=== PATIENT | female | born 1930 | race African-American/Black ===

== ENCOUNTER 2018-05-07 06:58 | Inpatient (IN) ==
[2018-05-07] MEDS ORDERED: SODIUM CHLORIDE 0.9% 500 ML IV STA (07:25)
[2018-05-07] MEDS ORDERED: PANTOPRAZOLE 40 MG VIAL IV STA (07:25)
[2018-05-07 07:39] LABS: Basophils % 0.3 % (0.0-0.8); Eosinophils # 0.1 10*3/uL (0.0-0.87); Eosinophils % 0.7 % (0.00-10.9); Hematocrit 37.4 VOL% (35.7-47.0); Hemoglobin 12.2 GM/DL (12.0-16.0); Immature Granulocytes % 0.9 %; Immature Granulocytes Absolute 0.09 #; Lymphocytes # 1.3 10*3/uL (1.4-4.0); Lymphocytes % 13.7 % (21.3-54.2); Mean Corpuscular HGB Conc 32.6 GM/DL (32-36); Mean Corpuscular Hemoglobin 28 PG (27-34); Mean Corpuscular Volume 86.6 FL (87-102); Mean Platelet Volume 9.3 FL (9.6-12.0); Monocytes # 0.6 10*3/uL (0.11-0.8); Neutrophils # 7.6 10*3/uL (1.4-7.4); Neutrophils % 78.4 % (38.7-73.9); Platelet Count 284 T/CUMM (130-400); Red Blood Count 4.32 MC/CUMM (3.8-5.5); White Blood Count 9.7 T/CUMM (4-12)
[2018-05-07 07:46] LABS: INR 0.9; PT Patient Result 10.1 SECS
[2018-05-07] MEDS ORDERED: ONDANSETRON 4 MG/2 ML VIAL IV PRN (07:56)
[2018-05-07] MEDS ORDERED: ACETAMINOPHEN 325 MG TABLET PO PRN (07:56)
[2018-05-07 08:00] LABS: Albumin 3.7 G/DL (3.4-5.0); Bilirubin,Total 0.4 MG/DL (0.2-1.0); Calcium 9.5 MG/DL (8.5-10.1); Osmolality,Calculated 284.3 MOS/KG (273-304); Potassium 3.8 MMOL/L (3.5-5.1); Total Protein 7.2 G/DL (6.4-8.3)
[2018-05-07 13:30] LABS: Hematocrit 35.3 VOL% (35.7-47.0); Hemoglobin 11.2 GM/DL (12.0-16.0)
[2018-05-07] MEDS: SODIUM CHLORIDE 0.9% 1,000 ML IV SCH ×2 (14:02→22:09)
[2018-05-07] MEDS: traMADol 50 MG TABLET PO SCH (14:06)
[2018-05-07] MEDS: OFLOXACIN 0.3% OPH SOLN 10 ML BOTTLE LEFT EYE SCH ×3 (14:07→22:11)
[2018-05-07] MEDS: prednisoLONE ACETATE 1% OPH SUSP 5 ML BOTTLE LEFT EYE SCH ×3 (14:07→22:14)
[2018-05-07] MEDS: DOCUSATE SODIUM 100 MG CAPSULE PO SCH ×2 (14:07→22:10)
[2018-05-07 18:36] LABS: Hematocrit 33.4 VOL% (35.7-47.0); Hemoglobin 10.5 GM/DL (12.0-16.0)
[2018-05-07] MEDS: POTASSIUM CHLORIDE 10 MEQ TABLET PO SCH (22:10)
[2018-05-07] MEDS: SIMVASTATIN 20 MG TABLET PO SCH (22:10)
[2018-05-07] MEDS: LATANOPROST 0.005% OPH SOLN 2.5 ML BOTTLE BOTH EYES SCH (22:13)
[2018-05-08 02:30] LABS: Basophils % 0.3 % (0.0-0.8); Eosinophils # 0.3 10*3/uL (0.0-0.87); Eosinophils % 3.2 % (0.00-10.9); Hematocrit 28.9 VOL% (35.7-47.0); Hemoglobin 9.2 GM/DL (12.0-16.0); Immature Granulocytes % 0.7 %; Immature Granulocytes Absolute 0.07 #; Lymphocytes # 2.5 10*3/uL (1.4-4.0); Lymphocytes % 26.5 % (21.3-54.2); Mean Corpuscular HGB Conc 31.8 GM/DL (32-36); Mean Corpuscular Hemoglobin 28 PG (27-34); Mean Corpuscular Volume 88.7 FL (87-102); Mean Platelet Volume 9.3 FL (9.6-12.0); Monocytes # 0.9 10*3/uL (0.11-0.8); Monocytes % 9.4 % (1.7-12.7); Neutrophils # 5.7 10*3/uL (1.4-7.4); Neutrophils % 59.9 % (38.7-73.9); Platelet Count 225 T/CUMM (130-400); Red Blood Count 3.26 MC/CUMM (3.8-5.5); Red Cell Distribution Width 14.3 % (9.3-17.3); White Blood Count 9.5 T/CUMM (4-12)
[2018-05-08 03:03] LABS: Calcium 8.5 MG/DL (8.5-10.1); Osmolality,Calculated 281.3 MOS/KG (273-304); Potassium 3.4 MMOL/L (3.5-5.1)
[2018-05-08] MEDS: SODIUM CHLORIDE 0.9% 1,000 ML IV SCH ×2 (06:06→17:15)
[2018-05-08] MEDS ORDERED: LORATADINE 10 MG TABLET PO PRN (08:20)
[2018-05-08] MEDS: POTASSIUM CHLORIDE 20 MEQ TABLET PO PRN ×3 (09:28→17:16)
[2018-05-08] MEDS: PANTOPRAZOLE 40 MG TABLET PO SCH (09:28)
[2018-05-08] MEDS: traMADol 50 MG TABLET PO SCH (09:29)
[2018-05-08] MEDS: prednisoLONE ACETATE 1% OPH SUSP 5 ML BOTTLE LEFT EYE SCH ×4 (09:29→21:35)
[2018-05-08] MEDS: LORATADINE 10 MG TABLET PO SCH (09:29)
[2018-05-08] MEDS: FLUTICASONE 50 MCG NASAL SPRAY 16 GM BOTTLE BOTH NARES SCH (09:29)
[2018-05-08] MEDS: CYANOCOBALAMIN 500 MCG TABLET PO SCH (09:29)
[2018-05-08] MEDS: POTASSIUM CHLORIDE 10 MEQ TABLET PO SCH ×2 (09:29→21:34)
[2018-05-08] MEDS: DOCUSATE SODIUM 100 MG CAPSULE PO SCH ×2 (09:29→21:40)
[2018-05-08] MEDS: OFLOXACIN 0.3% OPH SOLN 10 ML BOTTLE LEFT EYE SCH ×4 (09:30→21:36)
[2018-05-08 12:01] LABS: Hematocrit 30.9 VOL% (35.7-47.0); Hemoglobin 9.7 GM/DL (12.0-16.0)
[2018-05-08 15:22] LABS: Hematocrit 29.6 VOL% (35.7-47.0); Hemoglobin 9.3 GM/DL (12.0-16.0)
[2018-05-08] MEDS: SIMVASTATIN 20 MG TABLET PO SCH (21:34)
[2018-05-08] MEDS: LATANOPROST 0.005% OPH SOLN 2.5 ML BOTTLE BOTH EYES SCH (21:35)
[2018-05-09 02:21] LABS: Calcium 8.4 MG/DL (8.5-10.1); Osmolality,Calculated 285.7 MOS/KG (273-304); Potassium 3.9 MMOL/L (3.5-5.1)
[2018-05-09 02:33] LABS: Basophils % 0.3 % (0.0-0.8); Eosinophils # 0.2 10*3/uL (0.0-0.87); Eosinophils % 3.7 % (0.00-10.9); Hematocrit 26.2 VOL% (35.7-47.0); Hemoglobin 8.3 GM/DL (12.0-16.0); Immature Granulocytes Absolute 0.06 #; Lymphocytes # 1.6 10*3/uL (1.4-4.0); Lymphocytes % 24.6 % (21.3-54.2); Mean Corpuscular HGB Conc 31.7 GM/DL (32-36); Mean Corpuscular Hemoglobin 28 PG (27-34); Mean Corpuscular Volume 88.8 FL (87-102); Mean Platelet Volume 9.7 FL (9.6-12.0); Monocytes # 0.7 10*3/uL (0.11-0.8); Monocytes % 10.5 % (1.7-12.7); Neutrophils # 3.8 10*3/uL (1.4-7.4); Neutrophils % 59.9 % (38.7-73.9); Platelet Count 211 T/CUMM (130-400); Red Blood Count 2.95 MC/CUMM (3.8-5.5); Red Cell Distribution Width 14.3 % (9.3-17.3); White Blood Count 6.3 T/CUMM (4-12)
[2018-05-09] MEDS: SODIUM CHLORIDE 0.9% 1,000 ML IV SCH (06:01)
[2018-05-09] MEDS: prednisoLONE ACETATE 1% OPH SUSP 5 ML BOTTLE LEFT EYE SCH ×4 (08:42→21:36)
[2018-05-09] MEDS: POTASSIUM CHLORIDE 10 MEQ TABLET PO SCH ×2 (08:42→21:36)
[2018-05-09] MEDS: CYANOCOBALAMIN 500 MCG TABLET PO SCH (08:42)
[2018-05-09] MEDS: FLUTICASONE 50 MCG NASAL SPRAY 16 GM BOTTLE BOTH NARES SCH (08:42)
[2018-05-09] MEDS: OFLOXACIN 0.3% OPH SOLN 10 ML BOTTLE LEFT EYE SCH ×4 (08:42→21:36)
[2018-05-09] MEDS: DOCUSATE SODIUM 100 MG CAPSULE PO SCH ×2 (08:43→21:36)
[2018-05-09] MEDS: PANTOPRAZOLE 40 MG TABLET PO SCH (08:43)
[2018-05-09] MEDS: LORATADINE 10 MG TABLET PO SCH (08:43)
[2018-05-09] MEDS: traMADol 50 MG TABLET PO SCH (08:43)
[2018-05-09 13:56] LABS: Hemoglobin 8.3 GM/DL (12.0-16.0)
[2018-05-09] MEDS: SIMVASTATIN 20 MG TABLET PO SCH (21:36)
[2018-05-09] MEDS: LATANOPROST 0.005% OPH SOLN 2.5 ML BOTTLE BOTH EYES SCH (21:38)
[2018-05-09] MEDS: TEMAZEPAM 15 MG CAPSULE PO PRN (23:44)
[2018-05-10] MEDS: POTASSIUM CHLORIDE 10 MEQ TABLET PO SCH ×2 (09:12→20:58)
[2018-05-10] MEDS: traMADol 50 MG TABLET PO SCH (09:12)
[2018-05-10] MEDS: LORATADINE 10 MG TABLET PO SCH (09:13)
[2018-05-10] MEDS: FLUTICASONE 50 MCG NASAL SPRAY 16 GM BOTTLE BOTH NARES SCH (09:13)
[2018-05-10] MEDS: PANTOPRAZOLE 40 MG TABLET PO SCH (09:13)
[2018-05-10] MEDS: OFLOXACIN 0.3% OPH SOLN 10 ML BOTTLE LEFT EYE SCH ×4 (09:13→20:58)
[2018-05-10] MEDS: CYANOCOBALAMIN 500 MCG TABLET PO SCH (09:13)
[2018-05-10] MEDS: DOCUSATE SODIUM 100 MG CAPSULE PO SCH ×2 (09:13→20:58)
[2018-05-10] MEDS: prednisoLONE ACETATE 1% OPH SUSP 5 ML BOTTLE LEFT EYE SCH ×4 (09:14→20:58)
[2018-05-10 09:24] LABS: Hematocrit 29.8 VOL% (35.7-47.0); Hemoglobin 9.3 GM/DL (12.0-16.0)
[2018-05-10] MEDS: SODIUM CHLORIDE 0.9% 1,000 ML IV SCH ×2 (10:31→21:03)
[2018-05-10 18:43] LABS: Hematocrit 26.5 VOL% (35.7-47.0); Hemoglobin 8.1 GM/DL (12.0-16.0)
[2018-05-10] MEDS: SIMVASTATIN 20 MG TABLET PO SCH (20:58)
[2018-05-10] MEDS: TEMAZEPAM 15 MG CAPSULE PO PRN (20:58)
[2018-05-10] MEDS: LATANOPROST 0.005% OPH SOLN 2.5 ML BOTTLE BOTH EYES SCH (20:59)
[2018-05-10] MEDS ORDERED: SODIUM CHLORIDE 0.9% 1,000 ML IV PRN (22:05)
[2018-05-11] MEDS ORDERED: FUROSEMIDE 20 MG/2 ML VIAL IV ONE (00:38)
[2018-05-11] MEDS: FLUTICASONE 50 MCG NASAL SPRAY 16 GM BOTTLE BOTH NARES SCH (09:24)
[2018-05-11] MEDS: OFLOXACIN 0.3% OPH SOLN 10 ML BOTTLE LEFT EYE SCH ×4 (09:24→20:42)
[2018-05-11] MEDS: prednisoLONE ACETATE 1% OPH SUSP 5 ML BOTTLE LEFT EYE SCH ×4 (09:25→20:42)
[2018-05-11] MEDS: POTASSIUM CHLORIDE 10 MEQ TABLET PO SCH ×2 (09:25→20:42)
[2018-05-11] MEDS: LORATADINE 10 MG TABLET PO SCH (09:25)
[2018-05-11] MEDS: traMADol 50 MG TABLET PO SCH (09:25)
[2018-05-11] MEDS: CYANOCOBALAMIN 500 MCG TABLET PO SCH (09:25)
[2018-05-11] MEDS: PANTOPRAZOLE 40 MG TABLET PO SCH (09:26)
[2018-05-11] MEDS: DOCUSATE SODIUM 100 MG CAPSULE PO SCH ×2 (09:26→20:42)
[2018-05-11 10:21] LABS: Calcium 9.6 MG/DL (8.5-10.1); Potassium 3.1 MMOL/L (3.5-5.1)
[2018-05-11 11:23] LABS: Basophils % 0.3 % (0.0-0.8); Eosinophils # 0.2 10*3/uL (0.0-0.87); Eosinophils % 2.1 % (0.00-10.9); Hematocrit 38.3 VOL% (35.7-47.0); Hemoglobin 12.2 GM/DL (12.0-16.0); Immature Granulocytes % 0.7 %; Immature Granulocytes Absolute 0.06 #; Lymphocytes # 1.5 10*3/uL (1.4-4.0); Mean Corpuscular HGB Conc 31.9 GM/DL (32-36); Mean Corpuscular Hemoglobin 28 PG (27-34); Mean Corpuscular Volume 87.6 FL (87-102); Mean Platelet Volume 9.6 FL (9.6-12.0); Monocytes # 0.7 10*3/uL (0.11-0.8); Monocytes % 7.5 % (1.7-12.7); NRBC # 0.02 10*3/uL; Neutrophils # 6.3 10*3/uL (1.4-7.4); Neutrophils % 72.4 % (38.7-73.9); Platelet Count 293 T/CUMM (130-400); Red Blood Count 4.37 MC/CUMM (3.8-5.5); Red Cell Distribution Width 14.9 % (9.3-17.3); White Blood Count 8.8 T/CUMM (4-12)
[2018-05-11] MEDS: SODIUM CHLORIDE 0.9% 1,000 ML IV SCH (11:29)
[2018-05-11] MEDS: POTASSIUM CHLORIDE 20 MEQ TABLET PO PRN ×3 (12:41→20:43)
[2018-05-11 20:03] LABS: Hematocrit 33.5 VOL% (35.7-47.0); Hemoglobin 10.7 GM/DL (12.0-16.0)
[2018-05-11] MEDS: LATANOPROST 0.005% OPH SOLN 2.5 ML BOTTLE BOTH EYES SCH (20:42)
[2018-05-11] MEDS: TEMAZEPAM 15 MG CAPSULE PO PRN (20:42)
[2018-05-11] MEDS: SIMVASTATIN 20 MG TABLET PO SCH (20:43)
[2018-05-12 06:00] LABS: Basophils % 0.3 % (0.0-0.8); Eosinophils # 0.3 10*3/uL (0.0-0.87); Eosinophils % 3.2 % (0.00-10.9); Hematocrit 34.6 VOL% (35.7-47.0); Hemoglobin 11.1 GM/DL (12.0-16.0); Immature Granulocytes % 1.4 %; Immature Granulocytes Absolute 0.12 #; Lymphocytes # 1.7 10*3/uL (1.4-4.0); Lymphocytes % 19.2 % (21.3-54.2); Mean Corpuscular HGB Conc 32.1 GM/DL (32-36); Mean Corpuscular Hemoglobin 28 PG (27-34); Mean Corpuscular Volume 87.8 FL (87-102); Mean Platelet Volume 9.4 FL (9.6-12.0); Monocytes # 0.8 10*3/uL (0.11-0.8); Neutrophils # 5.9 10*3/uL (1.4-7.4); Neutrophils % 66.9 % (38.7-73.9); Platelet Count 280 T/CUMM (130-400); Red Blood Count 3.94 MC/CUMM (3.8-5.5); Red Cell Distribution Width 15.1 % (9.3-17.3); White Blood Count 8.8 T/CUMM (4-12)
[2018-05-12 06:16] LABS: Albumin 3.2 G/DL (3.4-5.0); Bilirubin,Total 0.6 MG/DL (0.2-1.0); Calcium 9.4 MG/DL (8.5-10.1); Total Protein 6.5 G/DL (6.4-8.3)
[2018-05-12 08:07] VITALS: BP 139/85
== END 2018-05-12 09:43 | disposition home or self-care (01) | DRG 378 ==
LOC: N.ED 06:58 → N.EDINP 06:58 → N.2E 12:12
PROVIDERS: ADMIT Internal Medicine; ATTEND Internal Medicine

== ENCOUNTER 2018-08-05 07:07 | Inpatient (IN) ==
[2018-08-05] MEDS ORDERED: SODIUM CHLORIDE 0.9% 1,000 ML IV STA (07:47)
[2018-08-05] MEDS ORDERED: PANTOPRAZOLE 40 MG VIAL IV STA (07:47)
[2018-08-05] MEDS ORDERED: ONDANSETRON 4 MG/2 ML VIAL IV STA (07:47)
[2018-08-05 08:55] LABS: Basophils % 0.4 % (0.0-0.8); Eosinophils # 0.1 10*3/uL (0.0-0.87); Eosinophils % 1.4 % (0.00-10.9); Hematocrit 38.4 VOL% (35.7-47.0); Immature Granulocytes % 0.6 %; Immature Granulocytes Absolute 0.03 #; Lymphocytes # 0.9 10*3/uL (1.4-4.0); Lymphocytes % 18.6 % (21.3-54.2); Mean Corpuscular HGB Conc 31.3 GM/DL (32-36); Mean Corpuscular Volume 89.3 FL (87-102); Mean Platelet Volume 9.4 FL (9.6-12.0); Monocytes % 10.4 % (1.7-12.7); Neutrophils % 68.6 % (38.7-73.9); Platelet Count 250 T/CUMM (130-400); Red Cell Distribution Width 13.8 % (9.3-17.3)
[2018-08-05 09:02] LABS: PT Patient Result 10.4 SECS; Partial Thromboplastin Time 27.5 SECS (0-40)
[2018-08-05 09:13] LABS: Albumin 3.4 G/DL (3.4-5.0); Bilirubin,Total 0.5 MG/DL (0.2-1.0); Calcium 8.6 MG/DL (8.5-10.1); Osmolality,Calculated 284.1 MOS/KG (273-304); Total Protein 6.2 G/DL (6.4-8.3)
[2018-08-05] MEDS ORDERED: ONDANSETRON 4 MG/2 ML VIAL IV PRN (09:24)
[2018-08-05] MEDS: SODIUM CHLORIDE 0.9% 1,000 ML IV SCH ×2 (12:03→23:20)
[2018-08-05] MEDS ORDERED: FUROSEMIDE 40 MG/4 ML VIAL IV PRN (12:52)
[2018-08-05] MEDS ORDERED: traMADol 50 MG TABLET PO PRN (13:16)
[2018-08-05 14:10] LABS: Hematocrit 32.7 VOL% (35.7-47.0); Hemoglobin 10.2 GM/DL (12.0-16.0)
[2018-08-05] MEDS: SIMVASTATIN 20 MG TABLET PO SCH (18:02)
[2018-08-05] MEDS: FERROUS SULFATE 325 MG TABLET PO SCH (18:02)
[2018-08-05 21:03] LABS: Hematocrit 29.6 VOL% (35.7-47.0); Hemoglobin 9.3 GM/DL (12.0-16.0)
[2018-08-05] MEDS: POTASSIUM GLUCONATE 500 MG TABLET PO SCH (21:06)
[2018-08-05] MEDS: DOCUSATE SODIUM 100 MG CAPSULE PO SCH (21:06)
[2018-08-05] MEDS: LATANOPROST 0.005% OPH SOLN 2.5 ML BOTTLE BOTH EYES SCH (21:07)
[2018-08-06 02:35] LABS: Hematocrit 25.6 VOL% (35.7-47.0); Hemoglobin 7.9 GM/DL (12.0-16.0)
[2018-08-06] MEDS ORDERED: SODIUM CHLORIDE 0.9% 1,000 ML IV PRN (02:47)
[2018-08-06 05:31] LABS: Calcium 8.2 MG/DL (8.5-10.1); Osmolality,Calculated 286.8 MOS/KG (273-304)
[2018-08-06 05:32] LABS: Basophils % 0.3 % (0.0-0.8); Eosinophils # 0.2 10*3/uL (0.0-0.87); Eosinophils % 2.8 % (0.00-10.9); Hematocrit 27.1 VOL% (35.7-47.0); Hemoglobin 8.4 GM/DL (12.0-16.0); Immature Granulocytes % 0.7 %; Immature Granulocytes Absolute 0.05 #; Lymphocytes # 1.9 10*3/uL (1.4-4.0); Lymphocytes % 27.1 % (21.3-54.2); Mean Corpuscular Volume 90.9 FL (87-102); Monocytes % 11.6 % (1.7-12.7); Neutrophils % 57.5 % (38.7-73.9); Platelet Count 216 T/CUMM (130-400); Red Blood Count 2.98 MC/CUMM (3.8-5.5); Red Cell Distribution Width 14.1 % (9.3-17.3); White Blood Count 7.2 T/CUMM (4-12)
[2018-08-06] MEDS: DOCUSATE SODIUM 100 MG CAPSULE PO SCH ×2 (08:48→20:57)
[2018-08-06] MEDS: PANTOPRAZOLE 40 MG TABLET PO SCH (08:48)
[2018-08-06] MEDS: FERROUS SULFATE 325 MG TABLET PO SCH ×2 (08:48→16:55)
[2018-08-06] MEDS: hydroCHLOROthiazide 12.5 MG CAPSULE PO SCH (08:48)
[2018-08-06] MEDS: POTASSIUM GLUCONATE 500 MG TABLET PO SCH ×2 (08:48→20:57)
[2018-08-06] MEDS: SODIUM CHLORIDE 0.9% 1,000 ML IV SCH ×2 (08:54→21:01)
[2018-08-06] MEDS ORDERED: PANTOPRAZOLE 40 MG TABLET PO SCH (09:00)
[2018-08-06 09:31] LABS: Folate > 24.0 NG/ML (5.4-24.0); Vitamin B12 1193 PG/ML (211-911)
[2018-08-06] MEDS: amLODIPine 10 MG TABLET PO SCH (10:16)
[2018-08-06 10:38] LABS: Hematocrit 32.1 VOL% (35.7-47.0)
[2018-08-06 10:42] LABS: Hemoglobin 10.3 GM/DL (12.0-16.0)
[2018-08-06 19:32] LABS: Hematocrit 30.3 VOL% (35.7-47.0); Hemoglobin 9.7 GM/DL (12.0-16.0)
[2018-08-06] MEDS: SIMVASTATIN 20 MG TABLET PO SCH (20:57)
[2018-08-06] MEDS: LATANOPROST 0.005% OPH SOLN 2.5 ML BOTTLE BOTH EYES SCH (20:58)
[2018-08-06] MEDS: ACETAMINOPHEN 325 MG TABLET PO PRN (21:10)
[2018-08-07 06:16] LABS: Hematocrit 30.1 VOL% (35.7-47.0); Hemoglobin 9.8 GM/DL (12.0-16.0)
[2018-08-07] MEDS: FERROUS SULFATE 325 MG TABLET PO SCH ×2 (08:48→16:27)
[2018-08-07] MEDS: PANTOPRAZOLE 40 MG TABLET PO SCH (08:48)
[2018-08-07] MEDS: POTASSIUM GLUCONATE 500 MG TABLET PO SCH ×2 (08:48→22:46)
[2018-08-07] MEDS: DOCUSATE SODIUM 100 MG CAPSULE PO SCH ×2 (08:48→22:46)
[2018-08-07] MEDS: hydroCHLOROthiazide 12.5 MG CAPSULE PO SCH (08:48)
[2018-08-07] MEDS: amLODIPine 10 MG TABLET PO SCH (08:48)
[2018-08-07] MEDS: SODIUM CHLORIDE 0.9% 1,000 ML IV SCH ×2 (10:42→22:51)
[2018-08-07 16:59] LABS: Hemoglobin 9.9 GM/DL (12.0-16.0)
[2018-08-07] MEDS: LATANOPROST 0.005% OPH SOLN 2.5 ML BOTTLE BOTH EYES SCH (22:46)
[2018-08-07] MEDS: SIMVASTATIN 20 MG TABLET PO SCH (22:46)
[2018-08-07] MEDS: ACETAMINOPHEN 325 MG TABLET PO PRN (22:48)
[2018-08-08 05:47] LABS: Basophils % 0.3 % (0.0-0.8); Eosinophils # 0.2 10*3/uL (0.0-0.87); Eosinophils % 3.1 % (0.00-10.9); Hematocrit 29.1 VOL% (35.7-47.0); Hemoglobin 9.5 GM/DL (12.0-16.0); Immature Granulocytes % 0.7 %; Immature Granulocytes Absolute 0.05 #; Lymphocytes # 1.4 10*3/uL (1.4-4.0); Lymphocytes % 18.2 % (21.3-54.2); Mean Corpuscular HGB Conc 32.6 GM/DL (32-36); Mean Corpuscular Volume 88.4 FL (87-102); Mean Platelet Volume 9.6 FL (9.6-12.0); Monocytes % 10.1 % (1.7-12.7); Neutrophils % 67.6 % (38.7-73.9); Platelet Count 200 T/CUMM (130-400); Red Blood Count 3.29 MC/CUMM (3.8-5.5); Red Cell Distribution Width 14.4 % (9.3-17.3); White Blood Count 7.4 T/CUMM (4-12)
[2018-08-08 05:59] LABS: Hematocrit 29.3 VOL% (35.7-47.0); Hemoglobin 9.5 GM/DL (12.0-16.0)
[2018-08-08 06:20] LABS: Calcium 8.4 MG/DL (8.5-10.1); Osmolality,Calculated 285.7 MOS/KG (273-304)
[2018-08-08] MEDS ORDERED: ALUMINUM/MAGNES/SIMETH MAX STR 30 ML UDCUP PO PRN (08:18)
[2018-08-08] MEDS: POTASSIUM GLUCONATE 500 MG TABLET PO SCH ×2 (08:25→21:15)
[2018-08-08] MEDS: DOCUSATE SODIUM 100 MG CAPSULE PO SCH ×2 (08:25→21:15)
[2018-08-08] MEDS: hydroCHLOROthiazide 12.5 MG CAPSULE PO SCH (08:25)
[2018-08-08] MEDS: PANTOPRAZOLE 40 MG TABLET PO SCH (08:26)
[2018-08-08] MEDS: FERROUS SULFATE 325 MG TABLET PO SCH ×2 (08:26→16:47)
[2018-08-08] MEDS: amLODIPine 10 MG TABLET PO SCH (08:26)
[2018-08-08] MEDS: POTASSIUM CHLORIDE 20 MEQ TABLET PO PRN ×5 (10:37→23:12)
[2018-08-08 16:32] LABS: Hematocrit 30.6 VOL% (35.7-47.0); Hemoglobin 9.6 GM/DL (12.0-16.0)
[2018-08-08] MEDS: SIMVASTATIN 20 MG TABLET PO SCH (18:00)
[2018-08-08] MEDS: LATANOPROST 0.005% OPH SOLN 2.5 ML BOTTLE BOTH EYES SCH (21:15)
[2018-08-08] MEDS: ACETAMINOPHEN 325 MG TABLET PO PRN (23:14)
[2018-08-09 05:58] LABS: Basophils % 0.3 % (0.0-0.8); Eosinophils # 0.1 10*3/uL (0.0-0.87); Eosinophils % 2.4 % (0.00-10.9); Hematocrit 30.5 VOL% (35.7-47.0); Hemoglobin 9.6 GM/DL (12.0-16.0); Immature Granulocytes % 0.8 %; Immature Granulocytes Absolute 0.05 #; Lymphocytes # 0.8 10*3/uL (1.4-4.0); Mean Corpuscular HGB Conc 31.5 GM/DL (32-36); Mean Platelet Volume 9.3 FL (9.6-12.0); Monocytes % 11.3 % (1.7-12.7); Neutrophils % 72.2 % (38.7-73.9); Platelet Count 205 T/CUMM (130-400); Red Blood Count 3.35 MC/CUMM (3.8-5.5); Red Cell Distribution Width 14.6 % (9.3-17.3); White Blood Count 5.9 T/CUMM (4-12)
[2018-08-09 06:36] LABS: Calcium 8.9 MG/DL (8.5-10.1); Osmolality,Calculated 280.1 MOS/KG (273-304)
[2018-08-09 08:34] VITALS: BP 122/77
[2018-08-09] MEDS: DOCUSATE SODIUM 100 MG CAPSULE PO SCH (09:23)
[2018-08-09] MEDS: POTASSIUM GLUCONATE 500 MG TABLET PO SCH (09:23)
[2018-08-09] MEDS: hydroCHLOROthiazide 12.5 MG CAPSULE PO SCH (09:23)
[2018-08-09] MEDS: FERROUS SULFATE 325 MG TABLET PO SCH (09:24)
[2018-08-09] MEDS: amLODIPine 10 MG TABLET PO SCH (09:24)
[2018-08-09] MEDS: PANTOPRAZOLE 40 MG TABLET PO SCH (09:24)
[2018-08-09] MEDS: POTASSIUM CHLORIDE 20 MEQ TABLET PO PRN (09:24)
== END 2018-08-09 11:10 | disposition home or self-care (01) | DRG 378 ==
LOC: N.ED 07:07 → N.EDINP 09:23 → N.2E 12:11
PROVIDERS: ADMIT Internal Medicine; ATTEND Internal Medicine

== ENCOUNTER 2018-08-15 09:20 | Inpatient (IN) ==
[2018-08-15 11:02] LABS: Basophils % 0.2 % (0.0-0.8); Eosinophils # 0.1 10*3/uL (0.0-0.87); Eosinophils % 0.7 % (0.00-10.9); Hematocrit 28.5 VOL% (35.7-47.0); Hemoglobin 8.7 GM/DL (12.0-16.0); Immature Granulocytes % 0.7 %; Immature Granulocytes Absolute 0.06 #; Lymphocytes # 1.5 10*3/uL (1.4-4.0); Lymphocytes % 17.3 % (21.3-54.2); Mean Corpuscular HGB Conc 30.5 GM/DL (32-36); Mean Corpuscular Volume 93.1 FL (87-102); Mean Platelet Volume 9.2 FL (9.6-12.0); Neutrophils % 74.1 % (38.7-73.9); Platelet Count 360 T/CUMM (130-400); Red Blood Count 3.06 MC/CUMM (3.8-5.5); Red Cell Distribution Width 15.4 % (9.3-17.3); White Blood Count 8.4 T/CUMM (4-12)
[2018-08-15 11:07] LABS: INR 0.9; Partial Thromboplastin Time 26.1 SECS (0-40)
[2018-08-15 11:17] LABS: Calcium 9.6 MG/DL (8.5-10.1); Osmolality,Calculated 287.1 MOS/KG (273-304)
[2018-08-15] MEDS ORDERED: SODIUM CHLORIDE 0.9% 500 ML IV STA (12:00)
[2018-08-15] MEDS ORDERED: ONDANSETRON 4 MG/2 ML VIAL IV PRN (12:01)
[2018-08-15 13:31] LABS: Hematocrit 25.6 VOL% (35.7-47.0); Hemoglobin 8.1 GM/DL (12.0-16.0)
[2018-08-15] MEDS: SODIUM CHLORIDE 0.9% 1,000 ML IV SCH (14:47)
[2018-08-15] MEDS: FERROUS SULFATE 325 MG TABLET PO SCH (18:08)
[2018-08-15] MEDS ORDERED: SODIUM CHLORIDE 0.9% 1,000 ML IV PRN (19:11)
[2018-08-15] MEDS: LATANOPROST 0.005% OPH SOLN 2.5 ML BOTTLE BOTH EYES SCH (21:12)
[2018-08-15] MEDS: SIMVASTATIN 20 MG TABLET PO SCH (21:12)
[2018-08-15] MEDS: DOCUSATE SODIUM 100 MG CAPSULE PO SCH (21:12)
[2018-08-15] MEDS: POTASSIUM CHLORIDE 10 MEQ TABLET PO SCH (21:12)
[2018-08-15] MEDS: cefTRIAXone 1,000 MG in SYRINGE 1 EACH IV SCH (21:13)
[2018-08-15] MEDS: ACETAMINOPHEN 325 MG TABLET PO PRN (23:06)
[2018-08-16] MEDS ORDERED: SODIUM CHLORIDE 0.9% 1,000 ML IV PRN (01:37)
[2018-08-16 05:53] LABS: Albumin 2.8 G/DL (3.4-5.0); Bilirubin,Total 0.7 MG/DL (0.2-1.0); Calcium 8.5 MG/DL (8.5-10.1); Osmolality,Calculated 285.8 MOS/KG (273-304); Total Protein 5.1 G/DL (6.4-8.3)
[2018-08-16] MEDS ORDERED: hydroCHLOROthiazide 12.5 MG CAPSULE PO SCH (09:00)
[2018-08-16] MEDS ORDERED: amLODIPine 10 MG TABLET PO SCH (09:00)
[2018-08-16] MEDS: SODIUM CHLORIDE 0.9% 1,000 ML IV SCH ×4 (09:35→21:13)
[2018-08-16] MEDS: POTASSIUM CHLORIDE 10 MEQ TABLET PO SCH ×2 (09:37→21:18)
[2018-08-16] MEDS: FERROUS SULFATE 325 MG TABLET PO SCH ×2 (09:37→16:56)
[2018-08-16] MEDS: DOCUSATE SODIUM 100 MG CAPSULE PO SCH ×2 (09:38→21:21)
[2018-08-16] MEDS: PANTOPRAZOLE 40 MG VIAL IV SCH (09:38)
[2018-08-16 11:07] LABS: Basophils % 0.3 % (0.0-0.8); Eosinophils # 0.2 10*3/uL (0.0-0.87); Hematocrit 32.2 VOL% (35.7-47.0); Hemoglobin 10.2 GM/DL (12.0-16.0); Immature Granulocytes % 0.9 %; Immature Granulocytes Absolute 0.08 #; Lymphocytes # 1.8 10*3/uL (1.4-4.0); Mean Corpuscular HGB Conc 31.7 GM/DL (32-36); Mean Platelet Volume 8.9 FL (9.6-12.0); Monocytes % 10.2 % (1.7-12.7); NRBC # 0.02 10*3/uL; Neutrophils % 67.6 % (38.7-73.9); Platelet Count 295 T/CUMM (130-400); Red Blood Count 3.79 MC/CUMM (3.8-5.5); Red Cell Distribution Width 21.2 % (9.3-17.3); White Blood Count 9.2 T/CUMM (4-12)
[2018-08-16] MEDS: cefTRIAXone 1,000 MG in SYRINGE 1 EACH IV SCH (21:14)
[2018-08-16] MEDS: traMADol 50 MG TABLET PO PRN (21:18)
[2018-08-16] MEDS: SIMVASTATIN 20 MG TABLET PO SCH (21:18)
[2018-08-16] MEDS: LATANOPROST 0.005% OPH SOLN 2.5 ML BOTTLE BOTH EYES SCH (21:20)
[2018-08-17] MEDS: SODIUM CHLORIDE 0.9% 1,000 ML IV SCH ×2 (03:12→13:39)
[2018-08-17 07:59] LABS: Basophils % 0.4 % (0.0-0.8); Eosinophils # 0.3 10*3/uL (0.0-0.87); Eosinophils % 3.2 % (0.00-10.9); Hematocrit 33.5 VOL% (35.7-47.0); Hemoglobin 10.6 GM/DL (12.0-16.0); Immature Granulocytes % 0.7 %; Immature Granulocytes Absolute 0.06 #; Lymphocytes # 1.9 10*3/uL (1.4-4.0); Lymphocytes % 22.8 % (21.3-54.2); Mean Corpuscular HGB Conc 31.6 GM/DL (32-36); Mean Corpuscular Volume 85.5 FL (87-102); Mean Platelet Volume 9.1 FL (9.6-12.0); NRBC # 0.05 10*3/uL; Neutrophils % 63.9 % (38.7-73.9); Platelet Count 327 T/CUMM (130-400); Red Blood Count 3.92 MC/CUMM (3.8-5.5); Red Cell Distribution Width 21.6 % (9.3-17.3); White Blood Count 8.5 T/CUMM (4-12)
[2018-08-17] MEDS: POTASSIUM CHLORIDE 10 MEQ TABLET PO SCH ×2 (09:40→21:20)
[2018-08-17] MEDS: DOCUSATE SODIUM 100 MG CAPSULE PO SCH ×2 (09:40→21:20)
[2018-08-17] MEDS: PANTOPRAZOLE 40 MG VIAL IV SCH (09:40)
[2018-08-17] MEDS: FERROUS SULFATE 325 MG TABLET PO SCH ×2 (09:40→17:46)
[2018-08-17] MEDS: LATANOPROST 0.005% OPH SOLN 2.5 ML BOTTLE BOTH EYES SCH (21:19)
[2018-08-17] MEDS: traMADol 50 MG TABLET PO PRN (21:19)
[2018-08-17] MEDS: SIMVASTATIN 20 MG TABLET PO SCH (21:20)
[2018-08-17] MEDS: cefTRIAXone 1,000 MG in SYRINGE 1 EACH IV SCH (21:25)
[2018-08-18] MEDS: ACETAMINOPHEN 325 MG TABLET PO PRN (00:23)
[2018-08-18] MEDS: SODIUM CHLORIDE 0.9% 1,000 ML IV SCH ×2 (02:12→08:47)
[2018-08-18 05:31] LABS: Basophils % 0.3 % (0.0-0.8); Eosinophils # 0.3 10*3/uL (0.0-0.87); Eosinophils % 3.9 % (0.00-10.9); Hematocrit 28.2 VOL% (35.7-47.0); Immature Granulocytes % 0.5 %; Immature Granulocytes Absolute 0.03 #; Lymphocytes # 1.5 10*3/uL (1.4-4.0); Lymphocytes % 23.6 % (21.3-54.2); Mean Corpuscular HGB Conc 31.9 GM/DL (32-36); Monocytes % 9.6 % (1.7-12.7); NRBC # 0.03 10*3/uL; Neutrophils % 62.1 % (38.7-73.9); Platelet Count 284 T/CUMM (130-400); Red Blood Count 3.28 MC/CUMM (3.8-5.5); Red Cell Distribution Width 21.2 % (9.3-17.3); White Blood Count 6.4 T/CUMM (4-12)
[2018-08-18 05:59] LABS: Calcium 8.3 MG/DL (8.5-10.1); Osmolality,Calculated 281.8 MOS/KG (273-304)
[2018-08-18] MEDS ORDERED: POTASSIUM CHLORIDE 20 MEQ/15 ML UDCUP PER TUBE PRN (08:26)
[2018-08-18] MEDS: PANTOPRAZOLE 40 MG VIAL IV SCH (08:26)
[2018-08-18] MEDS: POTASSIUM CHLORIDE 10 MEQ TABLET PO SCH ×2 (08:27→21:01)
[2018-08-18] MEDS: FERROUS SULFATE 325 MG TABLET PO SCH ×2 (08:27→17:36)
[2018-08-18] MEDS: DOCUSATE SODIUM 100 MG CAPSULE PO SCH ×2 (08:27→21:01)
[2018-08-18] MEDS ORDERED: FUROSEMIDE 40 MG/4 ML VIAL IV PRN (08:30)
[2018-08-18] MEDS ORDERED: SODIUM CHLORIDE 0.9% 1,000 ML IV PRN (08:30)
[2018-08-18 16:51] LABS: Hematocrit 32.2 VOL% (35.7-47.0); Hemoglobin 10.1 GM/DL (12.0-16.0)
[2018-08-18] MEDS: SIMVASTATIN 20 MG TABLET PO SCH (21:00)
[2018-08-18] MEDS: LATANOPROST 0.005% OPH SOLN 2.5 ML BOTTLE BOTH EYES SCH (21:04)
[2018-08-18] MEDS: traMADol 50 MG TABLET PO PRN (21:18)
[2018-08-19] MEDS: POTASSIUM CHLORIDE 20 MEQ TABLET PO PRN ×3 (01:38→05:08)
[2018-08-19 05:46] LABS: Hemoglobin 9.3 GM/DL (12.0-16.0)
[2018-08-19] MEDS: SODIUM CHLORIDE 0.9% 1,000 ML IV SCH (07:29)
[2018-08-19] MEDS: PANTOPRAZOLE 40 MG VIAL IV SCH (08:18)
[2018-08-19] MEDS: FERROUS SULFATE 325 MG TABLET PO SCH ×2 (08:19→16:59)
[2018-08-19] MEDS: DOCUSATE SODIUM 100 MG CAPSULE PO SCH ×2 (08:19→21:02)
[2018-08-19] MEDS: POTASSIUM CHLORIDE 10 MEQ TABLET PO SCH ×2 (08:19→21:02)
[2018-08-19 16:48] LABS: Hemoglobin 9.8 GM/DL (12.0-16.0)
[2018-08-19] MEDS: LATANOPROST 0.005% OPH SOLN 2.5 ML BOTTLE BOTH EYES SCH (21:02)
[2018-08-19] MEDS: SIMVASTATIN 20 MG TABLET PO SCH (21:02)
[2018-08-20] MEDS: traMADol 50 MG TABLET PO PRN (03:25)
[2018-08-20 05:36] LABS: Basophils % 0.4 % (0.0-0.8); Eosinophils # 0.2 10*3/uL (0.0-0.87); Eosinophils % 2.9 % (0.00-10.9); Hematocrit 31.3 VOL% (35.7-47.0); Hemoglobin 9.6 GM/DL (12.0-16.0); Immature Granulocytes % 0.6 %; Immature Granulocytes Absolute 0.05 #; Lymphocytes # 1.8 10*3/uL (1.4-4.0); Lymphocytes % 21.8 % (21.3-54.2); Mean Corpuscular HGB Conc 30.7 GM/DL (32-36); Mean Corpuscular Volume 89.4 FL (87-102); Mean Platelet Volume 8.8 FL (9.6-12.0); Monocytes % 10.7 % (1.7-12.7); NRBC # 0.03 10*3/uL; Neutrophils % 63.6 % (38.7-73.9); Platelet Count 312 T/CUMM (130-400); Red Cell Distribution Width 21.4 % (9.3-17.3)
[2018-08-20 05:51] LABS: Calcium 9.1 MG/DL (8.5-10.1); Osmolality,Calculated 286.7 MOS/KG (273-304)
[2018-08-20] MEDS: SODIUM CHLORIDE 0.9% 1,000 ML IV SCH (07:47)
[2018-08-20 08:25] VITALS: BP 130/97
[2018-08-20] MEDS: DOCUSATE SODIUM 100 MG CAPSULE PO SCH (08:44)
[2018-08-20] MEDS: PANTOPRAZOLE 40 MG VIAL IV SCH (08:44)
[2018-08-20] MEDS: FERROUS SULFATE 325 MG TABLET PO SCH (08:44)
[2018-08-20] MEDS: POTASSIUM CHLORIDE 10 MEQ TABLET PO SCH (08:44)
== END 2018-08-20 10:55 | disposition home or self-care (01) | DRG 379 ==
LOC: N.ED 09:20 → N.EDINP 12:01 → N.5E 17:37
PROVIDERS: ADMIT Internal Medicine; ATTEND Internal Medicine